=== PATIENT | male | born 1945 | race Two or more races ===

== ENCOUNTER 2016-11-22 06:48 | Observation (INO) | payer OTHER ==
[2016-11-22] MEDS ORDERED: DIAZEPAM 5 MG TAB PO ONE (06:55)
[2016-11-22] MEDS ORDERED: ceFAZolin 2 GM/DEXTROSE 100 ML IV ONE (06:55)
[2016-11-22] MEDS ORDERED: diphenhydrAMINE 25 MG CAP PO ONE (06:55)
[2016-11-22] MEDS ORDERED: BACITRACIN IRRIGATION/NS 50,000 UNITS/1,000 ML BTL IRR ONE (06:55)
[2016-11-22] MEDS ORDERED: NS 1,000 ML IV ONE (06:55)
--- NOTE | 2016-11-22 07:32 | CPEKG ---
Heart Rate: 70 RR Interval: 857 P-R Interval: 344 QRSD Interval: 162 QT Interval: 444 QTC Interval: 480 P [place]: 241 QRS [place]: -51 T Wave [place]: 178 EKG Severity - ABNORMAL ECG - EKG Impression: ? ATRIAL-PACED COMPLEXES EKG Impression: FIRST DEGREE AV BLOCK EKG Impression: LEFT BUNDLE BRANCH BLOCK Electronically Signed By: Nicolas Young 22-Nov-2016 09:08:55
[2016-11-22 07:40] LABS: % IMMATURE GRANULYOCYTES 0.2 % (0.0-1.1); ABSOLUTE IMMATURE GRANULOCYTES 0.01 10^3/uL (0.00-0.10); ADD DIFF? NO; ADD MORPH? NO; ADD SCAN? NO; ATYPICAL LYMPHOCYTE FLAG 40 (0-99); FRAGMENT RBC FLAG 0 (0-99); HEMATOCRIT 38.5 % (40.0-51.0); HEMOGLOBIN 12.4 g/dL (13.7-17.5); LEFT SHIFT FLG 0 (0-99); LIPEMIA HEMOLYSIS FLAG 80 (0-99); MEAN CELL HEMOGLOBIN 29.3 pg (27.9-34.1); MEAN CELL HEMOGLOBIN CONCENTR. 32.2 g/dL (32.4-36.7); MEAN PLATELET VOLUME 10.5 fL (8.7-11.7); PLATELET CLUMPS FLAG 0 (0-99); PLATELET COUNT 179 10^3/uL (150-400); RED BLOOD CELL COUNT 4.23 10^6/uL (4.40-6.38); RED CELL DISTRIBUTION WIDTH 15.9 % (11.5-15.2)
[2016-11-22 07:44] LABS: INR 3.61 (0.83-1.16); PROTIME(PATIENT) 36.6 SEC (12.0-15.0)
[2016-11-22 08:20] LABS: ANION GAP 11 mEq/L (8-16); CALCIUM 9.5 mg/dL (8.5-10.4); CARBON DIOXIDE 27 mEq/l (22-31); CHLORIDE 104 mEq/L (97-110); CREATININE 1.4 mg/dL (0.7-1.3); GLOMERULAR FILTRATION RATE 50; GLUCOSE 90 mg/dL (70-100); POTASSIUM 4.3 mEq/L (3.5-5.2); SODIUM 142 mEq/L (134-144)
[2016-11-22] MEDS ORDERED: IOPAMIDOL (ISOVUE-300) 50 ML VIAL IV ONE (09:47)
[2016-11-22] MEDS ORDERED: BUPIVACAINE 0.5% 30 ML SDV ONE (09:47)
[2016-11-22] MEDS ORDERED: LIDOCAINE 1% 30 ML SDV ONE (09:47)
[2016-11-22] MEDS ORDERED: LIDOCAINE 2% 5 ML SDV ONE (10:00)
[2016-11-22] MEDS ORDERED: PROPOFOL/EMULSION 500 MG/50 ML BOTTLE IV ONE (10:01)
[2016-11-22] MEDS ORDERED: fentaNYL 100 MCG/2 ML INJ ONE (10:26)
[2016-11-22] MEDS ORDERED: IOPAMIDOL (ISOVUE-370) 150 ML BTL IV ONE (10:56)
--- NOTE | 2016-11-22 13:18 | CPEKG ---
Heart Rate: 70 RR Interval: 857 P-R Interval: 152 QRSD Interval: 168 QT Interval: 488 QTC Interval: 527 P [place]: 135 QRS [place]: 159 T Wave [place]: -53 EKG Severity - ABNORMAL ECG - EKG Impression: A-V DUAL-PACED RHYTHM Electronically Signed By: Nicolas Young 22-Nov-2016 13:22:55
[2016-11-22] MEDS ORDERED: ACETAMINOPHEN 325 MG TAB PO PRN (13:22)
--- NOTE | 2016-11-22 14:16 | DX ---
Portable chest x-ray 1328 hours. History: Followup pacemaker present. Findings: Triple lead pacemaker unit is now in place. There is no pneumothorax. Heart size is mildly enlarged. Pulmonary vasculature is prominent centrally. There are some prominent interstitial marking s have developed at the lung bases probably from dependent edema. There is no consolidation or effusi on. Osseous structures are unchanged. Impression: 1. Pacemaker unit change with 3 leads now identified. No pneumothorax. 2. Mild fluid overload pattern has developed.
--- NOTE | 2016-11-22 18:16 | EPPROC ---
Electrophysiology Procedure Note: Name : Yang Gamez : 1945 MR# : [id number] Procedure date : November 22, 2016 Copies to : [facility]. [facility], attnKaron Barton MD 2. Patient chart 3. PCP PROCEDURE PERFORMED: 1. Upgrade of A-V ICD to A-BiV ICD 2. Subclavian vein angiography 3. Fluoroscopy INDICATION: Existing A-V ICD Cardiomyopathy - ischemic and nonischemic Severe MR, [place] team requesting BIV before [place] LBBB First degree AV block requiring pacing Mechanical aortic valve PROCEDURE NOTE: Patient presented to the cardiac catheterization laboratory in a fasting, postabsorptive state. INR was 3.5, 2 units of FFP was given. At prior procedure, lovenox bridging caused large hematoma and therefore procedure was done with therapeutic INR. Dr. Sisi Hobson administered sedation. The left infraclavicular area was prepped and draped in the usual sterile fashion. Lidocaine plus bupivacaine was used for local anesthesia. Left subclavian venography was performed by injection of iodinated contrast into the left antecubital vein. 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 Prior to making pocket using a direct stick technique the left extrathoracic axillary vein was accessed with 1 sticks using the modified Seldinger technique. Placement of the guide wire into the venous system was confirmed by low pressure blood return and also by visualizing the guide wire advancing into the inferior vena cava. Using a combination of blunt and sharp dissection and electrocautery, the dissection was carried down to the prepectoral fascia. The existing ICD pocket was exposed. All bleeding was controlled with electrocautery. Wire was moved to inside the pocket. Fluoroscopy was utilized during the entire procedure for venous access and placement of the leads. A purse string suture was applied around the guide wire. There was paucity of SQ tissue. A 9 [place] sheath was advanced over the guide wire into the subclavian vein. The coronary sinus ostium was engaged. There was a large [place]ian valve and advancing sheath into the CS was difficult, it was achieved with J wire, LCB catheter. Due to Cr of 1.4 we minimized dye use. A coronary sinus quadrapolar lead was advanced into the coronary sinus. An angioplasty wire was advanced through the lead and advanced into the mid portion of the anterolateral branch of the coronary sinus. The lead was advanced over the angioplasty wire. However lead could not be advanced distally due to likely branch vein stenosis. We used Luge and Mailman wire. Lead was changed to a bipolar lead. Pacing threshold, sensing and impedance was determined. There was no diaphragmatic stimulation at maximum output. The delivery system and the 9 Fr sheath were peeled away. The lead dislodged slightly proximally (0.5 cm ) and there was no capture. Luge wire was advanced through the lead (without sheath support) and we were able to advance the lead into the anterolateral branch and achieve good thresholds. Again, pacing threshold, sensing and impedance was determined. There was no diaphragmatic stimulation at maximum output. The CS lead was secured to the prepectoral fascia with 2 nonabsorbablesutures. Pacing threshold and sensing parameters of the RA and RV leads were checked again. The gauze packing was removed from the pacemaker pocket. The pocket was again inspected for any bleeding. The leads were attached to the pacemaker securely. The pacemaker was inserted into the pocket and secured in place with a nonabsorbable suture. Fluoroscopy was performed in MEZA and JORDANIAN planes to verify right sided placement of the RA and RV leads. Also fluoroscopy of the pacemaker pocket was performed. Defibrillation threshold testing was not performed. The pacemaker pocket was closed in 3 layers with absorbable monocryl sutures and henny. Appropriate dressing was applied. The patient left the cardiac catheterization laboratory in stable condition. Defibrillation testing: Not performed. Serial Numbers: 1. Device Biotronik Iperia [id number] ProMRI SN [id number] 2. Atrial Lead Medtronic 4076 -45 [id number] 3. Right Ventricular Lead Biotronik Protego S60 SN [id number] 4. Left Ventricular Lead Medtronic 4196-78 [id number] Stimulation Thresholds & Impedance Measurements: 1. Atrial Lead P 5.4 mV 0.8V 0.4 ms 405 ohm 2. Right Ventricular Lead R 22 mV 0.6 V 0.4 ms 530 ohm 3. Left Ventricular Lead R 12.9 mV 1.4 V 0.4 ms 980 ohm Jorje Pacing Parameters: 1. Pacing mode DDD CLS 2. Lower rate 70 ppm 3. Upper [id number] ppm Tachycardia therapy parameters: VF zone : Detection 222 bpm First therapy 30 Joule Subsequent therapies _40_ Joule VT zone : Detection 170 bpm ATP Second therapy 30 Joule Subsequent therapies 40 Joule Patient Problems: Problems Problem Status Diagnosed Cardiomyopathy Acute
[2016-11-22] MEDS: ATORVASTATIN CALCIUM 10 MG TAB PO SCH (19:57)
[2016-11-23 05:12] LABS: % IMMATURE GRANULYOCYTES 0.1 % (0.0-1.1); ABSOLUTE IMMATURE GRANULOCYTES 0.01 10^3/uL (0.00-0.10); ADD DIFF? NO; ADD MORPH? NO; ADD SCAN? NO; ATYPICAL LYMPHOCYTE FLAG 10 (0-99); FRAGMENT RBC FLAG 0 (0-99); HEMATOCRIT 35.5 % (40.0-51.0); HEMOGLOBIN 11.8 g/dL (13.7-17.5); LEFT SHIFT FLG 0 (0-99); LIPEMIA HEMOLYSIS FLAG 80 (0-99); MEAN CELL HEMOGLOBIN 29.1 pg (27.9-34.1); MEAN CELL HEMOGLOBIN CONCENTR. 33.2 g/dL (32.4-36.7); MEAN CELL VOLUME 87.7 fL (81.5-99.8); MEAN PLATELET VOLUME 10.6 fL (8.7-11.7); PLATELET CLUMPS FLAG 0 (0-99); PLATELET COUNT 161 10^3/uL (150-400); RED BLOOD CELL COUNT 4.05 10^6/uL (4.40-6.38); RED CELL DISTRIBUTION WIDTH 15.7 % (11.5-15.2)
[2016-11-23 05:34] LABS: POTASSIUM 4.5 mEq/L (3.5-5.2)
[2016-11-23 05:35] LABS: ANION GAP 9 mEq/L (8-16); CALCIUM 8.9 mg/dL (8.5-10.4); CARBON DIOXIDE 25 mEq/l (22-31); CHLORIDE 105 mEq/L (97-110); CREATININE 1.1 mg/dL (0.7-1.3); GLOMERULAR FILTRATION RATE > 60; GLUCOSE 95 mg/dL (70-100); SODIUM 139 mEq/L (134-144)
[2016-11-23 07:57] VITALS: BP 94/60; PULSE 73; RESP 18; TEMP 98.6; O2SAT 91
[2016-11-23] MEDS ORDERED: FLU VACC TS 2016-17(65YR+)/PF 0.5 ML SYR (FLUZONE HIGH DOSE) IM ONE (08:00)
--- NOTE | 2016-11-23 08:50 | CPEKG ---
Heart Rate: 74 RR Interval: 811 P-R Interval: 148 QRSD Interval: 164 QT Interval: 500 QTC Interval: 555 P [place]: 145 QRS [place]: 203 T Wave [place]: -27 EKG Severity - ABNORMAL ECG - EKG Impression: ATRIAL-SENSED VENTRICULAR-PACED RHYTHM Electronically Signed By: Nicolas Young 23-Nov-2016 09:12:15
[2016-11-23] MEDS ORDERED: FERROUS SULFATE 325 MG TAB PO SCH (09:00)
[2016-11-23] MEDS ORDERED: LISINOPRIL 2.5 MG TAB PO SCH (09:00)
[2016-11-23] MEDS ORDERED: FUROSEMIDE 80 MG TAB PO SCH (09:00)
[2016-11-23] MEDS ORDERED: PARoxetine HCL 20 MG TAB PO SCH (09:00)
[2016-11-23] MEDS ORDERED: CHOLECALCIFEROL VIT D3 2,000 UNITS TAB/CAP PO SCH (09:00)
[2016-11-23] MEDS ORDERED: SPIRONOLACTONE 25 MG TAB PO SCH (09:00)
[2016-11-23] MEDS ORDERED: METOPROLOL SUCCINATE XR 25 MG TAB PO SCH (09:00)
[2016-11-23] MEDS ORDERED: AMIODARONE HCL 200 MG TAB PO SCH (09:00)
[2016-11-23] MEDS: ATORVASTATIN CALCIUM 10 MG TAB PO SCH (09:12)
--- NOTE | 2016-11-23 09:23 | DX ---
PA and Lateral Chest November 23, 2016 Clinical Indication: Post pacer placement. Comparison: November 22, 2016. Findings: Mediastinal wires are unchanged. The left chest pacer and its leads are unchanged. Lungs ar e mildly hyperinflated. There is some linear atelectatic change or scarring in the right midlung. The re is no evidence of pneumothorax. Heart size remains mildly enlarged. Impression: 1. Mild cardiomegaly. Mild pulmonary venous vascular congestion from one day prior is slightly improv ed. 2. Pacer and mediastinal wires, unchanged.
--- NOTE | 2016-11-23 09:58 | GDS ---
[f rep st] DISCHARGE SUMMARY ADMISSION DIAGNOSES: 1. Left bundle branch block. 2. Congestive heart failure. 3. Ischemic and nonischemic cardiomyopathy. 4. Mechanical aortic valve prosthesis. DISCHARGE DIAGNOSES: 1. Left bundle branch block. 2. Congestive heart failure. 3. Ischemic and nonischemic cardiomyopathy. 4. Mechanical aortic valve prosthesis. PROCEDURE PERFORMED: Upgrade of existing dual-chamber ICD to a biventricular ICD. HOSPITAL COURSE: Hospital stay was uncomplicated. Chest x-ray on the day of the procedure following upgrade to BiV ICD and the following morning did not show any pneumothorax. All 3 ICD leads appear to be in stable position. Activity limitations were reviewed with the patient. He is to resume his warfarin today. Please ref er to home medication reconciliation list for complete list of medications. He is stable for discharge from my standpoint. Followup will be with [facility] RN for wound check in 1 week and with me in 1 month. /[id number]/MODL
== END 2016-11-23 10:37 | disposition home or self-care (01) ==
LOC: FCATH 06:48 → F2W 13:10
PROVIDERS: ADMIT Internal Medicine Cardiovascular Disease; ATTEND Internal Medicine Cardiovascular Disease
PROC: 02HK3KZ Insertion of Defibrillator Lead into Right Ventricle, Percutaneous Approach (ICD-10-PCS; principal; 2016-11-22)
PROC: 02HL3KZ Insertion of Defibrillator Lead into Left Ventricle, Percutaneous Approach (ICD-10-PCS; principal; 2016-11-22)
PROC: 0JPT0PZ Removal of Cardiac Rhythm Related Device from Trunk Subcutaneous Tissue and Fascia, Open Approach (ICD-10-PCS; principal; 2016-11-22)
PROC: 30233N1 Transfusion of Nonautologous Red Blood Cells into Peripheral Vein, Percutaneous Approach (ICD-10-PCS; principal; 2016-11-22)
DX: I44.7 Left bundle-branch block, unspecified (principal); I50.32 Chronic diastolic (congestive) heart failure; I25.5 Ischemic cardiomyopathy; Z95.2 Presence of prosthetic heart valve; Z95.1 Presence of aortocoronary bypass graft; I25.810 Atherosclerosis of coronary artery bypass graft(s) without angina pectoris; D64.9 Anemia, unspecified; E11.9 Type 2 diabetes mellitus without complications; N40.0 Benign prostatic hyperplasia without lower urinary tract symptoms; Z86.73 Personal history of transient ischemic attack (TIA), and cerebral infarction without residual deficits; Z87.891 Personal history of nicotine dependence; Z23 Encounter for immunization
CPT/HCPCS: 33225; 33228; 36430; 71010; 71020; 90662; 93005; C1769; C1882; C1900; G0008; J0690; J2704; J3010; P9017; Q9967

== ENCOUNTER 2016-12-26 19:29 | Inpatient (IN) | payer OTHER ==
--- NOTE | 2016-12-26 20:02 | CPEKG ---
Heart Rate: 79 RR Interval: 759 P-R Interval: 144 QRSD Interval: 174 QT Interval: 484 QTC Interval: 556 P [place]: 62 QRS [place]: 145 T Wave [place]: 95 EKG Severity - ABNORMAL ECG - EKG Impression: A-V DUAL-PACED RHYTHM WITH SOME INHIBITION Electronically Signed By: Mariusz Freitas 26-Dec-2016 21:13:48
[2016-12-26] MEDS ORDERED: NS 500 ML IV ONE (20:18)
[2016-12-26] MEDS ORDERED: IOPAMIDOL (ISOVUE 370) 100 ML BTL IV ONE (20:25)
[2016-12-26 20:26] LABS: % IMMATURE GRANULYOCYTES 0.2 % (0.0-1.1); ABSOLUTE IMMATURE GRANULOCYTES 0.01 10^3/uL (0.00-0.10); ADD DIFF? NO; ADD MORPH? NO; ADD SCAN? NO; ATYPICAL LYMPHOCYTE FLAG 30 (0-99); FRAGMENT RBC FLAG 0 (0-99); HEMATOCRIT 38.4 % (40.0-51.0); HEMOGLOBIN 12.9 g/dL (13.7-17.5); LEFT SHIFT FLG 0 (0-99); LIPEMIA HEMOLYSIS FLAG 80 (0-99); MEAN CELL HEMOGLOBIN 29.9 pg (27.9-34.1); MEAN CELL HEMOGLOBIN CONCENTR. 33.6 g/dL (32.4-36.7); MEAN CELL VOLUME 89.1 fL (81.5-99.8); MEAN PLATELET VOLUME 11.4 fL (8.7-11.7); PLATELET CLUMPS FLAG 0 (0-99); PLATELET COUNT 166 10^3/uL (150-400); RED BLOOD CELL COUNT 4.31 10^6/uL (4.40-6.38); RED CELL DISTRIBUTION WIDTH 16.9 % (11.5-15.2)
--- NOTE | 2016-12-26 20:26 | EDPHY ---
H & P Stated Complaint: dizzy and lightheaded afib hx HPI/ROS: CHIEF COMPLAINT: Dizziness, near syncope HISTORY OF PRESENT ILLNESS: awoke this morning with some lightheadedness and became severely dizzy when he turns his head to the right head tilted back. Said that he was so dizzy, that things were spinning, he was nauseated, but he had to sit down and laid down. It did improve when lying flat. Also improved lying on his side. Continually returns when turning his head. He does not have any spinning sensation at rest. He does not have any chest pain or shortness of breath. No fever or chills. No trauma. History of coronary artery disease, heart failure and possibly diabetes. no other associated complaints or modifying factors. REVIEW OF SYSTEMS: Ten systems reviewed and are negative unless otherwise noted in the HPI EXAMINATION General Appearance: Alert, no distress Head: normocephalic, atraumatic Eyes: Pupils equal and round, no conjunctival pallor or injection . EOMs intact. No nystagmus ENT, Mouth: Mucous membranes moist. Uvula midline. Neck: Normal inspection, supple, non-tender. Range of motion full and intact. Respiratory: Lungs are clear to auscultation . No wheezing, rhonchi or crackles Cardiovascular: Regular rate and rhythm. Harsh systolic murmur. Pulses intact distally Gastrointestinal: Abdomen is soft and nontender. No CVA tenderness. Neurological: A&O, nonfocal, Strength is symmetric in all limbs. Cranial nerves 2-12 grossly intact. NIHSS: 0 Skin: Warm and dry, no rash Extremities: Nontender, 1+ pedal edema symmetrically Psychiatric: Mood and affect normal DIFFERENTIAL DIAGNOSES: Including but not limited to vertebrobasilar syndrome, carotid dissection, thrombus, CVA, vertigo, orthostatic hypotension MDM: 8:20 p.m. dizziness and near syncope that is concerning for vertebrobasilar origin. Has no headache. He has no unilateral deficits. Does have a significant heart history as well as a prediabetic scenario. Labs and CTA of the head and neck given ordered. He is resting comfortably in no acute distress at this time. We did attempt orthostatics but he did not tolerate this. He became near syncopal as soon as they sat him up for the setting measurements. Ordered 500 mL fluid we will monitor. 10:00 p.m. dizziness with elevated BNP but no significant cardiac disturbances on evaluation. CT scans of the head and neck with angiography reveals stenoses of the cervical canal as noted. Some of these are moderate to severe. There are no significant abnormalities on the vasculature noted. I discussed case with the hospitalist, they recommend repeating orthostatics and administering meclizine and re-evaluation 1 hour. I discussed this with the patient he is comfortable with this plan. Re-evaluated 1 hour 11:05 p.m. no improvement of his dizziness after IV fluids and meclizine. I rediscussed the case with Dr. Joy, and she will admit the patient for observation. Recommend MRI of the cervical spine while in the hospital before discharge home , But he is neuro intact without any weakness, anesthesia or paresthesia. EKG: Interpreted by Dr. Freitas Av paced rhythm. SUPERVISION: Patient was evaluated in conjunction with the supervising physician. Please see their note for details. Source: Patient Exam Limitations: No limitations - Personal History Current Tetanus/Diphtheria Vaccine: No Current Tetanus Diphtheria and Acellular Pertussis (TDAP): No - Medical/Surgical History Hx Asthma: No Hx Chronic Respiratory Disease: No Hx Diabetes: Yes Hx Cardiac Disease: Yes Hx Renal Disease: No Hx Cirrhosis: No Hx Alcoholism: No Hx HIV/AIDS: No Hx Splenectomy or Spleen Trauma: No Other PMH: cabg, ischemic cardiomyopathy,VA's,Stents, CAD,AVR, bradycardia, afib - Social History Smoking Status: Former smoker Constitutional: Initial Vital Signs Temperature (C) 98.1 F 12/26/16 19:48 Heart Rate 74 12/26/16 19:48 Respiratory Rate 16 12/26/16 19:48 Blood Pressure 100/66 12/26/16 19:48 O2 Sat (%) 94 12/26/16 19:48 O2 Delivery Mode Room Air Allergies/Adverse Reactions: protamine Allergy (Verified 04/14/15 08:07) protamine Allergy (Uncoded 04/14/15 08:07) Home Medications: Medication Instructions Recorded Atorvastatin Calcium [Lipitor 20 10 mg PO BID 04/14/15 mg (*)] PARoxetine HCL [Paxil 20mg (*)] 20 mg PO DAILY 04/14/15 Amiodarone HCl [Pacerone (*)] 200 mg PO DAILY 07/05/16 Metoprolol Succinate Xr [Toprol Xl 25 mg PO DAILY 07/05/16 25 mg (*)] Warfarin Sodium [Coumadin 5MG (*)] 5 mg PO MWF 07/05/16 Cholecalciferol Vit D3 [Vitamin D3 4,000 units PO DAILY 11/22/16 2000 units tab (OTC)] Ferrous Sulfate [Ferrous Sulf 325 325 mg PO DAILY 11/22/16 MG (*)] Furosemide [Lasix 80 MG (*)] 80 mg PO DAILY 11/22/16 Lisinopril [Zestril 2.5 mg (*)] 2.5 mg PO DAILY 11/22/16 Metformin HCl [Metformin HCl ER] 1,000 mg PO DAILY@18 11/22/16 Spironolactone [Aldactone 25 MG 12.5 mg PO DAILY 11/22/16 (*)] Warfarin Sodium [Coumadin 4MG (*)] 4 mg PO SUTUTHFR 11/22/16 Medical Decision Making - Data Points Laboratory Results: Laboratory Results 12/26/16 20:00 12/26/16 20:00 12/26/16 20:00 WBC 6.17 10^3/uL (3.80-9.50) RBC 4.31 L 10^6/uL (4.40-6.38) Hgb 12.9 L g/dL (13.7-17.5) Hct 38.4 L % (40.0-51.0) MCV 89.1 fL (81.5-99.8) MCH 29.9 pg (27.9-34.1) MCHC 33.6 g/dL (32.4-36.7) RDW 16.9 H % (11.5-15.2) Plt Count 166 10^3/uL (150-400) MPV 11.4 fL (8.7-11.7) Neut % (Auto) 58.9 % (39.3-74.2) Lymph % (Auto) 24.0 % (15.0-45.0) [place] % (Auto) 13.5 H % (4.5-13.0) Eos % (Auto) 2.9 % (0.6-7.6) Baso % (Auto) 0.5 % (0.3-1.7) Nucleat RBC Rel Count 0.0 % (0.0-0.2) Absolute Neuts (auto) 3.64 10^3/uL (1.70-6.50) Absolute Lymphs (auto) 1.48 10^3/uL (1.00-3.00) Absolute Monos (auto) 0.83 H 10^3/uL (0.30-0.80) Absolute Eos (auto) 0.18 10^3/uL (0.03-0.40) Absolute Basos (auto) 0.03 10^3/uL (0.02-0.10) Absolute Nucleated RBC 0.00 10^3/uL (0-0.01) Immature Gran % 0.2 % (0.0-1.1) Immature Gran # 0.01 10^3/uL (0.00-0.10) PT 29.6 H SEC (12.0-15.0) INR 2.77 H (0.83-1.16) APTT 44.4 H SEC (23.0-38.0) Sodium 141 mEq/L (134-144) Potassium 3.8 mEq/L (3.5-5.2) Chloride 105 mEq/L (97-110) Carbon Dioxide 24 mEq/l (22-31) Anion Gap 12 mEq/L (8-16) BUN 19 mg/dL (7-23) Creatinine 1.3 mg/dL (0.7-1.3) Estimated GFR 55 Glucose 100 mg/dL (70-100) Calcium 9.3 mg/dL (8.5-10.4) Total Bilirubin 0.9 mg/dL (0.1-1.4) Conjugated Bilirubin 0.4 mg/dL (0.0-0.5) Unconjugated Bilirubin 0.5 mg/dL (0.0-1.1) AST 24 IU/L (17-59) ALT 24 IU/L (21-72) Alkaline Phosphatase 116 IU/L (38-126) Troponin I < 0.012 ng/mL (0-0.034) NT-Pro-B Natriuret Pep 9380 H pg/mL (0-125) Total Protein 7.5 g/dL (6.3-8.2) Albumin 3.9 g/dL (3.5-5.0) Medications Given: Discontinued Medications Sodium Chloride (Ns) 500 mls @ 0 mls/hr IV ONCE ONE PRN Reason: As Directed Stop: 12/26/16 20:19 Last Admin: 12/26/16 20:47 Dose: 500 mls Meclizine HCl (Meclizine Hcl) 25 mg PO EDNOW ONE Stop: 12/26/16 22:00 Last Admin: 12/26/16 22:21 Dose: 25 mg Departure - Departure Disposition: [facility] Acute Clinical Impression: Dizziness, Orthostasis Chronic heart failure Qualifiers: Heart failure type: unspecified heart failure type Qualifier Code: (I50.9) Heart failure, unspecified Condition: Good
[2016-12-26 20:33] LABS: ALANINE AMINOTRANSFERASE 24 IU/L (21-72); ALBUMIN 3.9 g/dL (3.5-5.0); ALKALINE PHOSPHATASE 116 IU/L (38-126); ANION GAP 12 mEq/L (8-16); ASPARTATE AMINOTRANSFERASE 24 IU/L (17-59); BILIRUBIN,TOTAL 0.9 mg/dL (0.1-1.4); BILIRUBIN-CONJUGATED 0.4 mg/dL (0.0-0.5); BILIRUBIN-UNCONJUGATED 0.5 mg/dL (0.0-1.1); CALCIUM 9.3 mg/dL (8.5-10.4); CARBON DIOXIDE 24 mEq/l (22-31); CHLORIDE 105 mEq/L (97-110); CREATININE 1.3 mg/dL (0.7-1.3); GLOMERULAR FILTRATION RATE 55; GLUCOSE 100 mg/dL (70-100); POTASSIUM 3.8 mEq/L (3.5-5.2); SODIUM 141 mEq/L (134-144); TOTAL PROTEIN 7.5 g/dL (6.3-8.2)
[2016-12-26 20:35] LABS: INR 2.77 (0.83-1.16); PROTIME(PATIENT) 29.6 SEC (12.0-15.0)
[2016-12-26 20:36] LABS: APTT 44.4 SEC (23.0-38.0)
[2016-12-26 20:44] LABS: TROPONIN I < 0.012 ng/mL (0-0.034)
--- NOTE | 2016-12-26 21:58 | CT ---
CT Angiogram Neck With Contrast Enhancement and Multiplanar Reconstructions at 2049 hours History: Dizziness, vertebral basilar syndrome Technique: 1.25 mm axial multidetector helical CT imaging was performed through the brain and neck wh ile 90 mL Isovue-370 were injected intravenously without complication. The images were then transfer red to an independent workstation where multiplanar and three-dimensional reconstructions were perfor med by the interpreting physician and reviewed at multiple windows. Dose reduction techniques were ut ilized. CTA Findings: Severe centrilobular emphysema bilateral lung apices. Multilevel moderate to severe degenerative disk disease with dorsal disk/osteophyte complexes at C3-C 4, C4-C5, C5-C6 and C6-C7 resulting in moderate to severe central canal stenosis at all levels. Mild atherosclerotic plaque of the aortic arch and origin of the great vessels. Mild atherosclerotic plaque bilateral carotid bulbs and proximal internal carotid arteries with mild less than 30% diamete r stenosis. No evidence of common carotid artery or internal carotid artery dissection, or occlusion. Bilateral vertebral arteries are patent and codominant without dissection or occlusion. Vertebrobasil ar system appears patent. Impression: 1. COPD. 2. Severe cervical spondylosis from C3-C4 through C6-C7 resulting in moderate to severe central canal stenosis. Consider MRI cervical spine. 3. Mild atherosclerotic disease bilateral carotid bulbs with less than 30% diameter stenosis of bilat eral internal carotid arteries. 4. No carotid or vertebral dissection or occlusion. Measurement of carotid stenosis is based on the residual internal carotid diameter with [place] Symptomatic Carotid Endarterectomy Trial (NASCET) based stenosis levels. CT Angiogram of the Brain Clinical Indications: Dizziness, vertebral basilar syndrome Technique: CT angiogram of the brain and neck was performed with the uneventful intravenous administ ration of 90 mL Isovue-370 contrast. Multiplanar reconstructions including 3D reconstructions perform ed and evaluated on [employer] workstation in order to better evaluate the [place] vessels. Imag es were manipulated by the radiologist at the computer workstation. Dose reduction techniques were ut ilized. Findings: Major vessels of the [place] are adequately displayed, demonstrating no evidence of aneurysm, vascular malformation, flow-limiting stenosis, or occlusion. Bilateral cavernous interna l carotid arteries and vertebrobasilar system demonstrates no evidence of flow-limiting stenosis, ane urysm, occlusion, or dissection. Superior sagittal sinus, transverse sinuses, and major veins demonst rate no evidence of intraluminal thrombi. Cerebrovascular atherosclerosis bilateral cavernous interna l carotid arteries. Impression: Cerebrovascular atherosclerosis. Findings and recommendations discussed with Emergency Department physician, Ervin Main at 214 5 hour, 12/26/2016. Final report concurs with initial preliminary interpretation.
[2016-12-26] MEDS ORDERED: MECLIZINE HCL 25 MG TAB PO ONE (21:59)
--- NOTE | 2016-12-26 22:20 | DX ---
Chest, One View Portable at 2210 hours History: Dizziness, heart failure. Comparison: November 23, 2016 Findings: Cardiac silhouette is mildly enlarged. Median sternotomy wires, mediastinal clips, and AIC D pacemaker again noted. Mild pulmonary venous hypertension. No pneumonia, pleural effusion, or pneum othorax. Impression: 1. Pacemaker without pneumothorax. 2. Prior coronary artery bypass. 3. Mild cardiomegaly and mild pulmonary venous hypertension. 4. Consider chest 2 views when the patient's medical condition permits.
[2016-12-27] MEDS ORDERED: ACETAMINOPHEN 325 MG TAB PO PRN (01:47)
[2016-12-27] MEDS ORDERED: ONDANSETRON DISINTEGRATING 4 MG TAB PO PRN (01:47)
[2016-12-27] MEDS ORDERED: ONDANSETRON 4 MG/2 ML VIAL IVP PRN (01:47)
[2016-12-27] MEDS ORDERED: D50W 25 GM/50 ML SYR IVP PRN (01:49)
[2016-12-27] MEDS ORDERED: MECLIZINE HCL 25 MG TAB PO PRN (01:52)
--- NOTE | 2016-12-27 03:28 | GHP ---
[f rep st] HISTORY AND PHYSICAL DATE OF ADMISSION: 12/26/2016 CHIEF COMPLAINT: Dizziness. PRIMARY CARDIAC CATHETERIZATION TECHNICIAN: Dr. Sahu. PRIMARY HEART FAILURE PHYSICIAN: Dr. Huggins. HISTORY OF PRESENT ILLNESS: The patient is a 71-year-old male, with history of CAD, ischemic cardiomyopathy, systolic heart failure, and mechanical aortic valve, presenting with dizziness. When he awoke this morning, he rolled to his back and then to his right side, and felt like he was going to pass out. He felt very dizzy. He denies that the room was spinning. He then laid back on the left side and the sensation went away. He then tried to lay again to the right and felt like he was going to vomit. He rolled over on his hands and knees and was able to back out of his bed and able to stand slowly. He did have a similar sensation with bending over, especially to the right. He felt very off balance as if he was not walking in a straight line. He denies any recent upper respiratory infection symptoms. No new medications. No fevers, chills, or sweats. No chest pain, shortness of breath. No lower extremity edema. No vision loss, weakness, or slurred speech. REVIEW OF SYSTEMS: I completed a 10-point review of systems, negative except as noted in HPI. PAST MEDICAL HISTORY: Left bundle branch block, systolic heart failure with EF of 20%, nonischemic/ischemic cardiomyopathy. PAST SURGICAL HISTORY: Aortic valve replacement, TURP, had an upgrade of a dual -chamber ICD to biventricular ICD on 11/22/2016. [place]IAL H[place] tobacco. No illicits or alcohol. FAMILY HISTORY: Mother with an FL. Father with lung cancer. ALLERGIES: Protamine. MEDICATIONS: Coumadin 5 mg Sunday, Sunday, Sunday, 4 mg Sunday, Sunday, , Sunday, spironolactone 12.5 daily, paroxetine 20 mg daily, Toprol 25 daily, metformin 1000 mg daily, Zestril 2.5 daily, Lasix 80 mg daily, iron 325 daily, vitamin D3, Lipitor 20, amiodarone 200 mg daily. PHYSICAL EXAM: VITAL SIGNS: Blood pressure 101/71, heart rate 80s, respirations 15, 97% on room air, afebrile. Blood pressure when sitting 78/72, heart rate 85, standing 80/62, with a heart rate of 76. GENERAL: Patient is lying in bed, in no acute distress. HEENT: PERRLA, EOMI. Oropharynx clear. CV : Regular rate and rhythm. No murmurs, gallops, or rubs. Left pacemaker surgical site clean, dry, and intact. No evidence of cellulitis or infection. LUNGS: Clear to auscultation bilaterally. ABDOMEN: Soft, nontender, nondistended. Positive bowel sounds. : No [place]. No suprapubic tenderness. MUSCULOSKELETAL: 5/5 right upper and lower extremity. The patient's exam is limited on the left due to restrictions given recent surgery. 5/5 strength on left lower extremity. NEURO: 2 through 12 intact. Normal sensation to touch. I attempted a [place]-Hallpike maneuver; however, when sitting the patient up he became very symptomatic and thus would not tolerate. No pronator drift. LABS: WBC 6.7, hemoglobin 12.9, hematocrit 38, platelets 166. INR is 2.7, PT 29.6. Sodium 141, potassium 3.8, chloride 105, carbon dioxide 24, BUN 19, creatinine 1.3, baseline is 1.1 to 1.4. Glucose 100. LFTs within normal. Troponin less than 0.012. Albumin 3.9. BNP 9380. Echocardiogram June 2016: LVEF 20%. Global hypokinesis. Neck CTA: Severe cervical spondylitis from C3-C4 thru C6-7, resulting in moderate to severe central canal stenosis. Mild atherosclerotic disease bilateral carotid bulbs with less than 30% stenosis. No carotid or vertebral dissection or occlusion. EKG, AV paced. ASSESSMENT/PLAN: 1. Dizziness/presyncope: appears to be positional, especially when turning head to the right or leaning forward. No evidence of arrhythmia. Initial troponin was negative. We will repeat this. I attempted [place]-Hallpike maneuver , but patient was not able to tolerate given symptoms. He did receive a 500 cc of fluid in the ER. Blood pressure is currently stable. I will not continue given history of heart failure. Can trial meclizine overnight and repeat the maneuvers in the morning. Check CTH to make sure no cerebellar lesion. 2. Compensated systolic heart failure (ejection fraction 20%.) appears euvolemic on exam with no evidence of edema. Chest x-ray is clear. Will continue his home medications including Lasix, Zestril, and Toprol once medications are reconciled. 3. History of atrial valve replacement: cont Coumadin. 4. Ischemic cardiomyopathy: Continue home medications and anticoagulation. Recently had 2-lead implantable cardioverter-defibrillator upgraded to a biventricular implantable cardioverter-defibrillator. 5. Controlled diabetes. Hold metformin given IV contrast. Sliding scale insulin while here. 6. Hyperlipidemia. Statin. 7. Cervical stenosis. This was noted on CTA. The patient endorses muscular neck pain that began tonight, but denies any paresthesias in arms or bony pain. Could consider cervical MRI as an inpatient, but could also do in the outpatient setting. 8. Depression. Continue Paxil. 9. Diet cardiac. 10. Deep vein thrombosis prophylaxis. The patient is on Coumadin. 11. Patient warrants observation admission given acute dizziness and concern for falls with subsequent injury. We will have physical therapy and occupational therapy evaluate. /[id number]/MODL MTDD
[2016-12-27 05:11] LABS: HEMATOCRIT 35.8 % (40.0-51.0); HEMOGLOBIN 11.8 g/dL (13.7-17.5); MEAN CELL HEMOGLOBIN 29.4 pg (27.9-34.1); MEAN CELL VOLUME 89.3 fL (81.5-99.8); RED BLOOD CELL COUNT 4.01 10^6/uL (4.40-6.38); RED CELL DISTRIBUTION WIDTH 17.1 % (11.5-15.2)
[2016-12-27 05:25] LABS: INR 2.83 (0.83-1.16); PROTIME(PATIENT) 30.1 SEC (12.0-15.0)
[2016-12-27 05:54] LABS: ANION GAP 10 mEq/L (8-16); CALCIUM 9.3 mg/dL (8.5-10.4); CARBON DIOXIDE 22 mEq/l (22-31); CHLORIDE 108 mEq/L (97-110); CREATININE 1.2 mg/dL (0.7-1.3); GLOMERULAR FILTRATION RATE 60; GLUCOSE 92 mg/dL (70-100); POTASSIUM 3.6 mEq/L (3.5-5.2); SODIUM 140 mEq/L (134-144)
[2016-12-27 05:59] LABS: TROPONIN I < 0.012 ng/mL (0-0.034)
[2016-12-27 07:59] LABS: COLOR YELLOW; LEUKOCYTE ESTERASE,URINE 1+ (NEGATIVE); NITRITE,URINE NEGATIVE (NEGATIVE)
[2016-12-27 08:10] LABS: MUCUS TRACE /lpf (NONE-1+); WBC,URINE 50-182 /hpf (0-3)
[2016-12-27 08:11] LABS: BACTERIA NONE SEEN /hpf (NONE SEEN)
[2016-12-27] MEDS: INSULIN LISPRO 100 UNIT/ML SC SCH ×3 (08:11→18:12)
--- NOTE | 2016-12-27 15:07 | CT ---
CT Head Without Contrast History: Dizziness, reevaluate cerebellar infarction Comparison: CTA head yesterday (cerebral atherosclerosis). Technique: Noncontrast images through the head. Soft tissue and bone window evaluation is performed. Dose reduction techniques were utilized. Findings: There is a tiny lacunae in the periventricular deep white matter adjacent to the right late ral ventricle in the deep right parietal lobe. There is no evidence for hemorrhage, mass lesion, acut e infarction, intracranial edema, hydrocephalus or abnormal intracranial calcification. No subarachno id blood is identified. There is no midline shift. The ambient cistern is patent. There is no subdura l hematoma. This of a clinically no abnormality is identified in the cerebellum or brainstem.. Bone w indow evaluation reveals normally aerated paranasal and mastoid sinuses. There is atherosclerotic gogo cification of both distal internal carotid arteries. There is no evidence of pneumocephalus. Impression: Nothing acute identified. A CT with IV contrast may be useful to better evaluate the post erior fossa. It may be worthwhile to check with cardiology to see if the patient's pacemaker is kae tible with MRI. General information for patients regarding this examination can be found at [email or web address]. If you have questions or comments about this report, please contact me at [phone] (hospital) or [phone] (cell).
[2016-12-27] MEDS ORDERED: WARFARIN SODIUM 5 MG TAB PO SCH (16:00)
--- NOTE | 2016-12-27 16:18 | HOSPPROG ---
Hospitalist Progress Note Assessment/Plan: 71 yo M w chf here w vertigo c/f cva given rf profile 1. neuro to see 2. pt/ot 3. inr therapeutic 4. elevated bnp noted, not in clinical heart failure Subjective: still w vestibular sx and gait listing to R. less nausea. AICD lead incompatible w MRI Objective: Vital Signs Temp Pulse Resp BP Pulse Ox 36.6 C 73 16 92/52 L 95 12/27/16 16:02 12/27/16 16:02 12/27/16 16:02 12/27/16 16:02 12/27/16 16:02 Laboratory Results 12/27/16 04:30 12/27/16 04:30 12/26/16 12/27/16 12/28/16 05:59 05:59 05:59 Intake Total 850 Output Total 375 Balance 850 -375 PT 30.1 SEC (12.0-15.0) H 12/27/16 04:30 INR 2.83 (0.83-1.16) H 12/27/16 04:30 ICD10 Worksheet Patient Problems: Problems Problem Status Diagnosed Chronic heart failure Acute Dizziness Acute Orthostasis Acute Cardiomyopathy Acute
[2016-12-27] MEDS: AMIODARONE HCL 200 MG TAB PO SCH (16:33)
[2016-12-27] MEDS: FUROSEMIDE 80 MG TAB PO SCH (16:34)
[2016-12-27] MEDS: PARoxetine HCL 20 MG TAB PO SCH (16:34)
[2016-12-27] MEDS: LISINOPRIL 2.5 MG TAB PO SCH (16:34)
[2016-12-27] MEDS: METOPROLOL SUCCINATE XR 25 MG TAB PO SCH (16:34)
[2016-12-27] MEDS: SPIRONOLACTONE 25 MG TAB PO SCH (16:35)
[2016-12-27] MEDS ORDERED: metFORMIN SR 500 MG TAB PO SCH (17:00)
[2016-12-27] MEDS ORDERED: NON-FORMULARY NEW DRUG (Metformin Hcl [Metformin Hcl Er] 1,000 MG) PO SCH (18:00)
[2016-12-27] MEDS: ATORVASTATIN CALCIUM 20 MG TAB PO SCH (20:18)
[2016-12-27] MEDS: MECLIZINE HCL 25 MG TAB PO SCH (20:18)
--- NOTE | 2016-12-28 03:28 | GCON ---
[f rep st] CONSULTATION NEUROLOGIC CONSULTATION REFERRING PHYSICIAN: Dr. Goodwin The patient is a 71-year-old gentleman, whom I am asked to see in neurologic consultation regarding a cute dizziness complaints that started yesterday. The history is obtained from the patient who seems to be a very reliable historian, as well as discussions with Dr. Goodwin and review of the medical re cords from Dr. Joy. He has a history of valve replacement and chronic congestive heart failure, w hich is relatively stable and is on anticoagulation with therapeutic INR. He says that he recently h ad some concerns about some hearing impairment but had an evaluation and was not found have any heari ng loss. He was in bed yesterday and lying on his left side. He said he rolled to his right and fel t acute dizziness. He says this was a feeling as if he might pass out but not vertigo. He said he w as not spinning and the room was not spinning. He moved back to his left-side and symptoms got deep r. He later tried to get up and felt as if he might fall or pass out. There was a lightheaded feeli ng to it. He was in a recliner at 1 point and when he turned his head to the right he got this same profound set of symptoms. However, he says there is really no pain. He denies headache or significa nt neck pain. He has not had any numbness or weakness or double vision or change in vision. No slur red speech. No focal numbness or weakness in the extremities. When he does try to walk sometimes th e symptoms cause him to veer to the right. He is mostly feeling better now after getting some mecliz ine. He certainly has not gotten any worse and right now movements are not causing obvious trigger f or symptoms. No one has seen nystagmus at any point. He had a head CT showing no acute stroke or ot her obvious lesions to explain this. CT angiogram of the head and neck are relatively unremarkable w ith no evidence of dissection or severe stenoses and particularly nothing in the posterior circulatio n evident. REVIEW OF SYSTEMS: A 10-point review of systems is completed and unremarkable except for that noted above. When he does get symptoms that are severe it is clearly precipitated by turning his head to t he right, sometimes leaning forward. He has really never been through this exact same thing before e xcept in 1999 he had valve replacement at [facility] in [place] and did have episode of syncope and they went to workup at that time and he remembers them saying he might have had a mini stroke but that is as much as he knows about that. He has had some nausea and felt like he was generally going to vomi t with some of this. PAST MEDICAL HISTORY: As outlined above. Also, notable for TURP and has the dual-chamber ICD and bi ventricular ICD since November of this year. SOCIAL HISTORY: No recent smoking but smoked in the past. No drug use or alcohol use. FAMILY HISTORY: Lung cancer and myocardial infarction. ALLERGIES: Protamine. MEDICATIONS: When he came in included: Coumadin, paroxetine, Toprol, metformin, Zestril, Lasix, iro n, Lipitor, amiodarone. PHYSICAL EXAM: VITAL SIGNS: Blood pressure 92/52. He has had mild orthostatic decrease 98 systolic to 89 when he went from sitting to standing, supine pressure was 105 but on another occasion he went from 98 systolic to 80 systolic when he was sitting to standing. Heart rate did not correspondingly increase. GENERAL: In general, he is a well-developed man sitting up in the bed in no acute distre ss. EYES: Clear. NECK: Supple with no bruits or masses. CARDIAC: Regular rate and rhythm. No m urmur. He has a congenital malformation of the right hand. Pulses 2+. No peripheral edema. LUNGS: Clear. NEUROLOGIC: He is awake, alert, and attentive. He is oriented to person, place, time, and general situation. He has good concentration and attention as well as normal fund of knowledge and normal recent and remote memory. Pupils are 4 mm and reactive. Funduscopic exam is normal. No visu al field loss. Extraocular movements are intact. Normal facial sensation and strength. Palate elev ates symmetrically. Tongue protrudes midline. Hearing is preserved. Vestibuloocular reflexes are p reserved. Rapid head thrust in the lateral direction did not induce any symptoms or nystagmus. No w eakness of shoulder shrug or head turning. Motor exam reveals normal muscle bulk and tone with 5/5 s trength and no abnormal movements. Sensation is preserved for temperature and light touch. No ataxi a on finger to nose. When he stands, he immediately feels a little bit wobbly or unsteady and gets a nearly presyncopal sensation. This resolves quickly when he sits back down. IMPRESSION: The patient is having acute onset of vestibular dysfunction but also some mild orthostas is in terms of numbers but fairly prominent symptoms at times. This is getting better. It has not b een associated with any focal neurologic complaints nor has nystagmus been seen. It is unusual for i t to be vestibular purely without any of the classic vertigo, and it is also unusual to have absolute ly no nystagmus. However, a central nervous system cause like stroke is also not likely based on the fact that he has a very isolated set of symptoms and none of which are suggestive of medullary infar ct. He was very position dependent and continues to be highly dependent on turning his head to the r ight, although that is now much improved. The orthostatic issue may reflect some autonomic dysfuncti on but he does not really have other classic autonomic problems. In any case, I am simply going to m onitor his clinical course for now. He has had appropriate workup. He is on full anticoagulation. /[id number]/MODL
[2016-12-28 05:11] VITALS: TEMP 97.9
[2016-12-28 05:44] LABS: INR 2.74 (0.83-1.16); PROTIME(PATIENT) 29.3 SEC (12.0-15.0)
[2016-12-28] MEDS ORDERED: FERROUS SULFATE 325 MG TAB PO SCH (09:00)
[2016-12-28] MEDS ORDERED: CHOLECALCIFEROL VIT D3 2,000 UNITS TAB/CAP PO SCH (09:00)
--- NOTE | 2016-12-28 09:22 | NEUROPROG ---
Assessment: The patient continues to be stable or improved in the last 12 hours. As outlined in my original consultation, this is most likely consistent with a peripheral an etiology for the symptoms. Whether there is some contribution from cervical spine disease is a little bit hard to say. There are not strong features for myelopathy. His triggers are much less now, although he has a tendency to develop some orthostatic symptoms. Perhaps allowing his blood pressure to drift a little bit up would be reasonable. For now, it is appropriate to monitor am until he is safe to be discharged home, but there are not additional neurologic studies I would recommend. Subjective: I am following up from initial neurologic consultation yesterday for this patient. He says that he is feeling better overall, although he has not been spending very much time getting up because that tends to have any increase in some of the symptoms. He gets a description of lightheadedness or unsteadiness. He again confirmed that this is not true vertigo. He is not having symptoms induced by head turning. He denies nausea or vomiting now. He has not had change in vision speech chewing or swallowing. No focal numbness or weakness in the extremities. The only complaint is the feeling of unsteadiness when he stands up. Objective: Vital Signs Temp Pulse Resp BP Pulse Ox 36.6 C 89 18 94/63 L 97 12/28/16 08:00 12/28/16 08:00 12/28/16 08:00 12/28/16 08:00 12/28/16 08:00 12/27/16 12/28/16 12/29/16 05:59 05:59 05:59 Intake Total 810 Output Total 2300 Balance -1490 PT 29.3 SEC (12.0-15.0) H 12/28/16 05:01 INR 2.74 (0.83-1.16) H 12/28/16 05:01 He is awake and alert and attentive and oriented to person place and time. He has good recent and remote memory. Normal concentration and attention. Pupils are 3 mm and reactive. Extraocular movements are intact. Normal facial movement. Strength is 5/5. Sensation is preserved in the extremities and no ataxic movements in the upper extremities. Allergies/Adverse Reactions: protamine Allergy (Verified 04/14/15 08:07) protamine Allergy (Uncoded 04/14/15 08:07)
[2016-12-28] MEDS: INSULIN LISPRO 100 UNIT/ML SC SCH ×2 (09:54→12:50)
[2016-12-28] MEDS: PARoxetine HCL 20 MG TAB PO SCH (10:42)
[2016-12-28] MEDS: ATORVASTATIN CALCIUM 20 MG TAB PO SCH (10:43)
[2016-12-28] MEDS: AMIODARONE HCL 200 MG TAB PO SCH (10:43)
[2016-12-28] MEDS: FUROSEMIDE 80 MG TAB PO SCH (10:43)
[2016-12-28] MEDS: METOPROLOL SUCCINATE XR 25 MG TAB PO SCH (10:43)
[2016-12-28] MEDS: MECLIZINE HCL 25 MG TAB PO SCH (10:45)
[2016-12-28] MEDS: SPIRONOLACTONE 25 MG TAB PO SCH (12:27)
[2016-12-28] MEDS: LISINOPRIL 2.5 MG TAB PO SCH (12:27)
[2016-12-28 12:44] VITALS: O2SAT 95
[2016-12-28 13:01] VITALS: BP 86/62; PULSE 81; RESP 17
--- NOTE | 2016-12-28 15:22 | HOSPPROG ---
Hospitalist Progress Note Assessment/Plan: 71 yo M w chf here w vertigo most c/w peripheral vertigo improved prn meclizine cleared by OT home today Subjective: way better Objective: Vital Signs Temp Pulse Resp BP Pulse Ox 36.6 C 81 17 86/62 L 95 12/28/16 12:00 12/28/16 12:00 12/28/16 12:00 12/28/16 12:00 12/28/16 12:00 12/27/16 12/28/16 12/29/16 05:59 05:59 05:59 Intake Total 810 Output Total 2300 Balance -1490 PT 29.3 SEC (12.0-15.0) H 12/28/16 05:01 INR 2.74 (0.83-1.16) H 12/28/16 05:01 - Physical Exam Constitutional: no apparent distress, appears nourished Eyes: PERRL, anicteric sclera Ears, Nose, Mouth, Throat: moist mucous membranes, hearing normal Cardiovascular: regular rate and rhythym, no murmur, rub, or gallop Respiratory: no respiratory distress, no rales or rhonchi Gastrointestinal: normoactive bowel sounds, soft, non-tender abdomen Genitourinary: No mullen in urethra Skin: warm, normal color Musculoskeletal: full muscle strength Neurologic: AAOx3 ICD10 Worksheet Patient Problems: Problems Problem Status Diagnosed Chronic heart failure Acute Dizziness Acute Orthostasis Acute Cardiomyopathy Acute
[2016-12-28] MEDS ORDERED: WARFARIN SODIUM 4 MG TAB PO SCH (16:00)
--- NOTE | 2016-12-28 16:36 | GDS ---
[f rep st] DISCHARGE SUMMARY DISCHARGE DIAGNOSES: 1. Peripheral vertigo. 2. History of mechanical aortic valve. 3. Coronary disease. 4. Ischemic cardiomyopathy with AICD. 5. History of transurethral resection of prostate. CONSULTS DURING THIS ADMISSION: Neurology. HOSPITAL COURSE: Please see admission history and physical by Dr. Romana Joy. The patient prese nted with vertigo. Given his pacemaker placement, he was unable to get an MRI. CT showed no evidenc e of posterior fossa stroke. He was seen by Neurology, who felt the fatigability of this was most co nsistent with peripheral vertigo. Started on meclizine, markedly improved on the 2nd hospital day. Seen by PT and OT, cleared. Discharge home with meclizine p.r.n. Medicines otherwise unchanged. /[id number]/MODL
[2016-12-29] MEDS ORDERED: metFORMIN SR 500 MG TAB PO SCH (17:00)
== END 2016-12-28 16:45 | disposition home or self-care (01) | DRG 149 ==
LOC: F2W 12-27 00:05 → OBSVTOIN 12-27 16:16
PROVIDERS: ADMIT Internal Medicine; ATTEND Internal Medicine
DX: H81.399 Other peripheral vertigo, unspecified ear (principal); I50.20 Unspecified systolic (congestive) heart failure; I25.10 Atherosclerotic heart disease of native coronary artery without angina pectoris; I25.5 Ischemic cardiomyopathy; E11.9 Type 2 diabetes mellitus without complications; E78.5 Hyperlipidemia, unspecified; F32.9 Major depressive disorder, single episode, unspecified; M48.02 Spinal stenosis, cervical region; Z95.2 Presence of prosthetic heart valve; Z95.810 Presence of automatic (implantable) cardiac defibrillator
CPT/HCPCS: 97161-GP; 97165-GO; G8978-GP-CJ; G8979-GP-CI; G8987-GO-CI; G8988-GO-CI; G8989-GO-CI; Q9967

== ENCOUNTER → 2017-02-07 | Outpatient (CLI) | payer OTHER | LOC: BHFA 14:00 | PROVIDERS: ATTEND Internal Medicine Cardiovascular Disease | DX: I48.91 Unspecified atrial fibrillation (principal); Z95.4 Presence of other heart-valve replacement; I34.0 Nonrheumatic mitral (valve) insufficiency; I25.810 Atherosclerosis of coronary artery bypass graft(s) without angina pectoris; Z95.810 Presence of automatic (implantable) cardiac defibrillator; I50.22 Chronic systolic (congestive) heart failure; Z95.2 Presence of prosthetic heart valve; R06.02 Shortness of breath ==

== ENCOUNTER → 2017-02-19 | Outpatient (CLI) | payer OTHER | LOC: BHFA 11:30 | PROVIDERS: ATTEND Internal Medicine Interventional Cardiology | DX: I50.9 Heart failure, unspecified (principal); I25.10 Atherosclerotic heart disease of native coronary artery without angina pectoris; I35.9 Nonrheumatic aortic valve disorder, unspecified; I34.9 Nonrheumatic mitral valve disorder, unspecified ==

== ENCOUNTER → 2018-01-02 | Outpatient (CLI) | payer OTHER | LOC: BHFA 10:00 | PROVIDERS: ATTEND Internal Medicine Cardiovascular Disease | DX: I50.23 Acute on chronic systolic (congestive) heart failure (principal) ==

== ENCOUNTER → 2018-02-22 | Outpatient (CLI) | payer OTHER | LOC: FIMAGING 12:14 → EDSTATUS 12:15 | DX: J98.8 Other specified respiratory disorders (principal); R06.00 Dyspnea, unspecified ==